=== PATIENT | male | born 1960 | race Hispanic/Latino ===

== ENCOUNTER → 2018-12-09 | Outpatient (CLI) | payer BC ==
[~2018-12-09] VITALS: Ht 172.7 cm; Wt 89.8 kg
[~2018-12-09] MED LIST: REGADENOSON 0.4 MG/5 ML PF SYG IVP SCH
== END | disposition home or self-care (01) ==
LOC: SHCH 08:06
PROVIDERS: ATTEND Internal Medicine Cardiovascular Disease
DX: R07.9 Chest pain, unspecified (principal)
CPT/HCPCS: 78452; 93017; 96374; A9500 ×2; J2785